=== PATIENT | female | born 1945 | race Caucasian/White ===

== ENCOUNTER → 2017-03-24 | Outpatient (CLI) | payer OTHER ==
[~2017-03-24] MED LIST: CALCIUM 500 +1 EAC2 PO; EFFEXOR75 M2 PO; HYDROCHLOROTHIA25 MG PO; LEVOTHROID25 MCG PO; LORTAB 7.51 TAB 7.5/ PO; METOPROLOL TAR25 MG PO; PRAVACHOL PO; PRILOSEC PO
--- NOTE | ~2017-03-24 | MY10 ---
[facility] A Service of [facility] [place] RADIOLOGY TEXT RESULTS PATIENT: MARISA PARADA LOCATION: [facility] : 47 UNIT #: [id number] AGE: [address]: Terry Doctor NOT IN SYSTEM SEX: F ORDER DR: [id number] [place] [id number] O MR#: [id number] Acc #: [id number] NAME: MARISA PARADA : 1945 SEX: F STUDY DATE/TIME: 03/24/2017 12:01 UNIT: [facility] ROOM: STUDY DESCRIPTION: MY Mammogram Screen Uni Dig Rt Attending Physician: Generic Doctor Not In System Referring Physician: Generic Doctor Not In System Ordering Physician: Zeferino Frost Primary Care Physician: Generic Doctor Not In System MEDICAL IMAGING REPORT This report is preliminary unless electronic signature is present. EXAM Unilateral right digital screening mammogram 03/24/2017 [facility]. HISTORY 71-year-old woman; previous left mastectomy, age 58. Adjuvant chemotherapy. Previous reduction right mammoplasty. Annual screening. COMPARISON Mammograms date to 03/26/2007, with most recent screening comparison 03/19/2016. FINDINGS 3 views of the right breast are recorded. Review includes FDA-approved CAD device. Breast parenchyma is fatty replaced and stable. There is no interval occurring mass. There are no suspicious microcalcifications and no architectural deformity. IMPRESSION Negative unilateral right mammogram. Status post left mastectomy. Annual screening recommended. Patients over the age of 40 are entered into a reminder system with target due date for the next mammogram. A result letter will also be sent to the patient. BIRADS: 1 Negative Dictated by... [facility] A Service [facility] RADIOLOGY TEXT RESULTS PATIENT: MARISA PARADA LOCATION: [facility] : 47 UNIT #: [id number] AGE: [address]: Terry Doctor NOT IN SYSTEM SEX: F ORDER DR: Raymond Waters M.D. THIS IS AN ELECTRONICALLY VERIFIED REPORT Raymond Waters M.D. at 03/25/2017 8:10 AM Rachid TD: 03/24/2017 17:57 JOB #: [id number] MEDICAL IMAGING REPORT Page 1 of 1
== END | disposition home or self-care (01) ==
LOC: SMAM 11:19
DX: Z12.31 Encounter for screening mammogram for malignant neoplasm of breast (principal); Z90.12 Acquired absence of left breast and nipple; Z92.21 Personal history of antineoplastic chemotherapy
CPT/HCPCS: G0202